=== PATIENT | female | born 1975 ===

== ENCOUNTER 2024-10-17 09:42 | Outpatient (AMB) | payer OTHER, SELFPAY ==
--- NOTE | 2024-10-17 09:49 | A.OFFPC_ITS ---
Vital Signs 10/17/24 09:50 Height 5 ft 2.5 in Weight 182 lb 12.8 oz BMI 32.9 BP 132/80 Blood Pressure Location Lt brachial Position Sitting Respiration 18 Pulse 95 Pulse Source Pulse Oximeter Temp 98.9 F Temp Source Oral Pulse Oximetry (%) 99 Oxygen Delivery Method Room Air Intake Visit Reasons: establish care Intake Note: Patient is a new patient here to establish care. Transferring care from [facility] in [place], [place]. Medical records have been requested and have not received. Clinical Field Specialist Required: No Accompanied by: Self / Same As Patient Allergies No Known Allergies Allergy (Unknown, Verified 10/17/24 10:24) NONE Medication List - Last Reconciled 10/17/24 by NELLY Cohen No Known Home Meds Tobacco use date assessed: 10/17/24 Dental Screening Dental Screen Date: 10/17/24 Did you have a dental visit in the last 12 months?: Yes Did you have a dental problem in the last 6 months where you did not have access to dental care?: No Was dental information given to patient?: Patient has dentist HPI establish care HPI Details Previous PCP: Does not remembers the DR. watt, at [facility] Last visit: 7 years Last PE: same Specialist: no OBGYN: [facility], does not knows the doctor's name, visit last year Mammogram: done 2-3 months ago Pap smear: every 3 years due partial hysterectomy, completed 2 years ago Past medical history: Heart Burn-she has been taking omeprazole 20 mg OTC Medications: omeprazole Family HX: already in chart HPI: The patient is a 48-year-old female presenting with gastroesophageal reflux disease (GERD) and routine health maintenance. Her GERD symptoms include daily heartburn intensified by coffee, with symptoms emerging around six months ago. Currently, she manages her symptoms with 20 mg of [id number]-mbr-dfrmmll omeprazole taken twice daily, which provides partial relief. She has a past medical history significant for a partial hysterectomy and breast reduction surgery. Notably, she underwent a colonoscopy 10 to 12 years ago for post-surgical abdominal pain, identified as due to endometriosis. The patient has no reported history of hypertension and denies high blood pressure. Her family history includes diabetes. She has no current prescriptions aside from omeprazole. She is due for colonoscopy, discussed with the patient that since her last colonoscopy was normal she could do the Cologuard. Patient refused, said that she would not be able to collect he own stool. Denies chest pain, SOB, heart palpitation No abdominal pain/change in bowel habits Denies urinary symptoms PFSH Medical History (Updated 10/17/24 @ 16:17 by NELLY Cohen) GERD (gastroesophageal reflux disease) Endometriosis Surgical History (Updated 10/17/24 @ 10:02 by Destiny Miller SCALE TANK OPERATOR) History of bilateral breast reduction surgery History of partial hysterectomy Family History (Updated 10/17/24 @ 10:06 by Destiny Miller CMA) Father Heart failure Kidney failure Hypertension Diabetes Dialysis patient Mother Diabetes Hypertension Son No problems noted. Daughter No problems noted. Son No problems noted. 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 1. Little interest or pleasure in doing things: not at all 2. Feeling down, depressed, or hopeless: not at all 3. Trouble falling or staying asleep, or sleeping too much: not at all 4. Feeling tired or having little energy: not at all 5. Poor appetite or overeating: not at all 6. Feeling bad about yourself - or that you are a failure or have let yourself or your family down: not at all 7. Trouble concentrating on things, such as reading the newspaper or watching television: not at all 8. Moving or speaking so slowly that other people could have noticed. Or the opposite - being so fidgety or restless that you have been moving around a lot more than usual: not at all 9. Thoughts that you would be better off or of hurting yourself in some way: not at all Total score: 0 Depression Screening Interpretation: Negative Depression Screening Done: Yes 33436 - PHQ-9 Billing: Yes Source: Developed by Drs. Philippe Worthy, Leonard Lang and colleagues, with an educational kevin from [employer]. Thrive Questionnaire Date Thrive assessed: 10/17/24 I am a: Patient What is your living situation today?: I have a steady place to live Within the past 12 months, did the food you bought not last and you didn't have the money to get more?: Never true Within the past 12 months, did you worry whether your food would run out before you got money to buy more?: Never true Do you have trouble paying for medicines?: No Do you have trouble getting transportation to medical appointments?: No Do you have trouble paying your heating and electricity bill?: No Do you have trouble taking care of your child, family member or friend?: No Do you have trouble with day-to-day activities such as bathing, preparing meals, shopping, managing finances, etc.?: No Are you currently unemployed and looking for a job?: No Are you interested in more education?: No Please select the resources that you would like help with: None Currently or been in a relationship where the following occur: No concerns reported THRIVE Score: 0 AUDIT C Alcohol Use Questionnaire (AUDIT-C) 1. How often do you have a drink containing alcohol?: Never Total Score: 0 Score Reviewed/Action Taken: No NOEL-7 AMB Questionnaire NOEL-7 Date NOEL - 7 assessed: 10/17/24 Feeling nervous, anxious, or on edge: 0 = Not at all Not being able to stop or control worryin = Not at all Worrying too much about different things: 0 = Not at all Trouble relaxin = Not at all Being so restless that it is hard to sit still: 0 = Not at all Becoming easily annoyed or irritable: 0 = Not at all Feeling afraid as if something awful might happen: 0 = Not at all Total NOEL-7 score (0-4 normal; 5-9 mild; 10-14 moderate; 15-21 severe): 0 Source: Developed by Drs. Philippe Worthy, Leonard Lang and colleagues, with an educational kevin from [employer]. NOEL-7 Assessment Billing NOEL-7 Assessment Tool: NOEL-7 Assessment 31113 Review of Systems Const Denies headache(s) Eyes Denies loss of vision ENT Denies vertigo, Denies dizziness, Denies headache(s) and Denies sore throat Card Denies chest pain, Denies leg edema and Denies lightheadedness Resp Denies cough, Denies hemoptysis and Denies wheezing GI Denies abdominal pain, Denies melena, Denies constipation, Reports heartburn, Denies diarrhea and Denies vomiting Denies urinary frequency, Denies dysuria and Denies urinary urgency Musc Denies arthralgias, Denies joint swelling, Denies numbness and Denies tingling Neuro Denies Abnormal speech present, Denies behavioral changes, Denies vertigo, Denies dizziness, Denies headache(s), Denies loss of vision, Denies memory loss, Denies numbness and Denies tingling Psych Denies anxiety, Denies behavioral changes, Denies depression, Denies memory loss and Denies panic attacks Cricket/Lymph Denies easy bleeding and Denies easy bruising Aller/Immun Denies wheezing Physical exam (Primary Care) Vital Signs: Last Vital Signs Temp 98.9 F 10/17/24 09:50 Pulse 95 10/17/24 09:50 Resp 18 10/17/24 09:50 BP 132/80 10/17/24 09:50 Pulse Ox 99 10/17/24 09:50 Oxygen Delivery Method Room Air 10/17/24 09:50 BMI result Body Mass Index 32.9 Tobacco/Smoking Status: Tobacco use Status Tobacco use date assessed 10/17/24 10/17/24 09:58 Patient Tobacco Use Status Former Tobacco user 10/17/24 10:19 Tobacco use type Cigarette 10/17/24 10:19 e-Cigarette/Vaping Use Never Used 10/17/24 10:19 PHQ-9: PHQ-9 Score PHQ-9: Total score 0 10/17/24 10:31 Depression Screening Interpretation: Negative Thrive Assessment: Date of Thrive Assessment Date Thrive assessed 10/17/24 10/17/24 09:58 Currently or been in a relationship where the following occur: No concerns reported Const General: healthy appearing, no acute distress, alert and awake Nutritional Appearance: well nourished Orientation/consciousness: oriented to person, oriented to place and oriented to time HENMT Ears: TM's normal bilaterally General nose exam: Normal nasal mucous membranes and turbinates present Eyes Conjunctivae: conjunctivae normal Sclerae: sclerae normal Pupils: Equal, round and reactive pupils present Neck Neck: Yes no lymphadenopathy and Yes no JVD Thyroid: Thyroid normal Carotids: no bruits Resp Effort & Inspection: normal respiratory effort and not tachypneic Auscultation: no crackles, no rales, no rhonchi and no wheezes Cardio Rate: regular rate Rhythm: regular rhythm Heart sounds: no murmurs and normal S1 and S2 GI Palpation (GI): Soft to palpation, nontender, no hepatomegaly and no splenomegaly Auscultation: normal bowel sounds Skin General skin exam: no rashes or lesions noted and dry skin Neuro General: oriented to person, oriented to place and oriented to time Cranial nerves: Yes Equal, round and reactive pupils present Speech: No Abnormal speech present Gait exam (Neuro): Normal gait present Motor exam (neuro): no tremor noted Extrem Right upper extremity: full ROM Left upper extremity: full ROM Right lower extremity: full ROM; no edema Left lower extremity: full ROM; no edema Psych Mental Status: mental status grossly normal Speech and movement: Normal speech and movement present Affect: normal affect Attitude: cooperative Thought process: Normal thought process present Coding Level of Care Code New Pt Level 3 (74952) Diagnoses Gastroesophageal reflux disease, unspecified whether esophagitis present K21.9 Esophagitis presence: esophagitis presence not specified Additional Codes NOEL-7 Assessment Billing - NOEL-7 Assessment Tool: NOEL-7 Assessment 30369 ([id number]) PHQ-9 - 11345 - PHQ-9 Billing: Yes ([id number]) Time Spent (min) 34 Assessment & Plan Assessment & Plan (1) GERD (gastroesophageal reflux disease): Code(s): K21.9 - Gastro-esophageal reflux disease without esophagitis Category: Medical Qualifiers: Esophagitis presence: esophagitis presence not specified Qualified Code(s): K21.9 - Gastro-esophageal reflux disease without esophagitis Plan The patient?s management for gastroesophageal reflux disease involves starting on 40 mg of omeprazole each morning and dietary modifications to mitigate triggers. I informed the patient about the importance of taking medication before meals and reviewing dietary triggers like coffee, chocolate, and acidic foods. Given the chronicity and potential complications, referral to gastroenterology for further esophageal evaluation is recommended if symptoms persist. We will monitor GERD symptoms and assess medication effectiveness, advising follow-up in six weeks to evaluate progress with current treatment. The patient is due for a routine colonoscopy due to the significant interval since her last screening. Preventive measures will include scheduled lab tests for comprehensive health evaluation considering her family history of diabetes. Patient was informed and verbally consented to the use of an ambient scribe for clinic note documentation during this visit. Orders: Orders Complete Blood Count Auto Diff Today Z00.00 - Encounter for general adult medical examination without abnormal findings Comprehensive [place]. Panel Fast Today Z00.00 - Encounter for general adult me dical examination without abnormal findings Lipid Panel Today Z00.00 - Encounter for general adult medical examination without abnormal findings UA CC w/rflx Micro + Cult Today Z00.00 - Encounter for general adult medical examination without abnormal findings TSH reflex Free T4 Today Z00.00 - Encounter for general adult medical examination without abnormal findings Vitamin D 25-OH Total Today Z00.00 - Encounter for general adult medical examination without abnormal findings Referrals Gastroenterology Referral K21.9 - Gastro-esophageal reflux disease without esophagitis, Z12.11 - Encounter for screening for malignant neoplasm of colon, Z12.12 - Encounter for screening for malignant neoplasm of rectum Medications: New omeprazole 40 mg PO DAILY 90 caps 2RF Patient Instructions: - Take omeprazole 40 mg in the morning, 30 minutes before meals. - Avoid triggers like strong coffee, chocolate, and acidic foods. - Schedule a routine colonoscopy. - Follow up for lab work and wellness check. - Monitor GERD symptoms, and seek care if they worsen. - Return for follow-up in six weeks.
[2024-10-17 09:50] VITALS: BP 132/80; PULSE 95; RESP 18; TEMP 37.2; O2SAT 99; BMI 32.9
--- OUTSIDE RECORDS SUMMARY | 2024-10-17 10:18 | XMS_ITS | Clinical Summary ---
Author Organization [facility] ity Address [address] [place] [address] Care Team Providers Care Wage Analyst Name Role Phone Unavailable Primary Care Provider Unavailabl e Social History Tobacco Use Types Packs/Day Years Used Date Smoking Tobacco: Never Assessed Comments Unknown Sex and Gender Information Value Date Recorded Sex Assigned at Not on file Legal Sex Female 4:47 AM EST Gender Identity Not on file Sexual Orientation Not on file Plan of Treatment Health Maintenance Due Date Last Done Comments Breast Cancer Screening 1977 DTaP,Tdap,and Td Vaccines (1 - Tdap) 1996 Hepatitis B Vaccines (1 of 3 - 19+ 3-dose series) 1996 Cervical Cancer Screening: P ap Smear 1998 COVID-19 Vaccine (2023-2 5 season) 2024 Influenza Vaccine (Season Ended) 2025 HIB Vaccines Aged Out No longer eligi ble based on patient's age to complete this topic HPV Vaccines Aged Out No longer eligi ble based on patient's age to complete this topic Hepatitis A Vaccines Aged Out No long er eligible based on patient's age to complete this topic IPV Vaccines Aged Out No longer eligi ble based on patient's age to complete this topic MMR Vaccines Aged Out No longer eligi ble based on patient's age to complete this topic Meningococcal ACWY Vaccine Aged Out N o longer eligible based on patient's age to complete this topic Meningococcal B Vaccine Aged Out No l onger eligible based on patient's age to complete this topic Pneumococcal Vaccine: Pediat rics (0 to 5 Years) and At-Risk Patients (6 to 64 Years) Aged Out No longer eligible b ased on patient's age to complete this topic RSV Immunization Patients Un jose 20 months Aged Out No longer eligible b ased on patient's age to complete this topic Varicella Vaccines Aged Out No longer eligible based on patient's age to complete this topic
== END 2024-10-17 10:44 | disposition home or self-care (01) ==
LOC: HO.HMCH 09:43
DX: K21.9 Gastro-esophageal reflux disease without esophagitis (principal)

== ENCOUNTER → 2024-10-17 09:42 | Outpatient (BNVA) | payer OTHER, SELFPAY | DX: K21.9 Gastro-esophageal reflux disease without esophagitis (principal); I10 Essential (primary) hypertension; Z79.899 Other long term (current) drug therapy | CPT/HCPCS: 96127; 99202 ==

== ENCOUNTER 2024-10-25 07:40 | Outpatient (REF) | payer OTHER, SELFPAY ==
[2024-10-25 08:11] LABS: MANUAL DIFF FLAG NO
[2024-10-25 08:33] LABS: Basophils Absolute Auto 0.1 X10*3/uL (0.0-0.2); Basophils Percent Auto 0.6 % (0-2); Eosinophils Absolute Auto 0.2 X10*3/uL (0.0-0.4); Eosinophils Percent Auto 2.4 % (0-4); Hematocrit 37.5 % (37.0-47.0); Hemoglobin 12.7 g/dl (12.0-16.0); Imm Gran Abs Auto 0.04 X10*3/uL (0.00-0.03); Imm Gran Pct Auto 0.5 % (0.0-0.4); Lymphocytes Absolute Auto 2.8 X10*3/uL (1.2-4.9); Lymphocytes Percent Auto 31.3 % (20-40); Mean Corpuscular HGB Conc 33.9 g/dl (31.0-35.0); Mean Corpuscular Hemoglobin 29.3 pg (27.0-33.0); Mean Corpuscular Volume 86.4 fL (80.0-98.0); Mean Platelet Volume 9.9 fL (9.4-12.3); Monocytes Absolute Auto 0.7 X10*3/uL (0.1-1.2); Monocytes Percent Auto 8.1 % (2-11); Neutrophils Percent Auto 57.1 % (45-73); Platelet Count 319 X10*3/uL (160-400); Red Blood Count 4.34 X10*6/uL (4.20-5.50); Red Cell Distribution Width 13.4 % (11.0-16.0); White Blood Count 8.8 X10*3/uL (4.8-10.8)
[2024-10-25 09:20] LABS: Alanine Aminotransferase 30 U/L (0-31); Albumin Level 4.1 g/dL (3.5-5.0); Alkaline Phosphatase 74 U/L (39-117); Anion Gap 11 (12-20); Aspartate Amino Transferase 21 U/L (5-31); Bilirubin Total 0.8 mg/dL (0.0-1.0); Blood Urea Nitrogen 18 mg/dL (9-16); Calcium 9.8 mg/dL (8.4-10.2); Carbon Dioxide 29 mmol/L (22-29); Chloride 108 mmol/L (96-108); Cholesterol 251 mg/dL (<200); Estimated Glomerular Filt Rate > 60; Glucose Fasting 129 mg/dL (60-99); HDL Cholesterol 58 mg/dL (>40); LDL Cholesterol Calculated 168 mg/dL (<100); Potassium 4.2 mmol/L (3.3-5.1); Sodium 144 mmol/L (135-145); Triglycerides 127 mg/dL (<150)
[2024-10-25 09:41] LABS: Appearance Urine Clear; Color Urine Yellow; Glucose Urine UA Negative (Negative); Leukocyte Esterase Urine Negative (Negative); Nitrite Urine Negative (Negative); PH 5.5 (5.0-9.0); Specific Gravity - Urine 1.025 (1.005-1.025); Urine Blood Negative (Negative); Urine Ketones Negative (Negative); Urine Protein Negative (Neg-Trace)
[2024-10-25 09:41] LABS: TSH reflex Free T4 0.78 uIU/mL (0.32-4.0); Vitamin D 25-OH Total 25.6 ng/mL (>30)
== END 2024-10-25 07:41 | disposition home or self-care (01) ==
LOC: HO.LAB 07:40
DX: Z00.00 Encounter for general adult medical examination without abnormal findings (principal)
CPT/HCPCS: 36415; 80053; 80061; 81003; 82306; 84443; 85025

== ENCOUNTER 2024-12-25 10:18 | Outpatient (AMB) | payer OTHER, SELFPAY ==
[2024-12-25 10:20] VITALS: BP 150/90; PULSE 81; RESP 18; O2SAT 97; BMI 32.8
--- NOTE | 2024-12-25 10:20 | A.OFFPC_ITS ---
Vital Signs 12/25/24 10:20 12/25/24 11:11 Height 5 ft 2.5 in Weight 182 lb BMI 32.8 BP 150/90 H 154/96 H Blood Pressure Location Lt brachial Rt brachial Position Sitting Respiration 18 Pulse 81 Pulse Source Pulse Oximeter Pulse Oximetry (%) 97 Oxygen Delivery Method Room Air Intake Visit Reasons: pe Machine Set Up Operator Required: No Accompanied by: Self / Same As Patient Allergies No Known Allergies Allergy (Unknown, Verified 12/25/24 10:52) NONE Medication List - Last Reconciled 12/25/24 by NELLY Cohen omeprazole 40 mg PO DAILY Tobacco use date assessed: 12/25/24 Dental Screening Dental Screen Date: 12/25/24 Did you have a dental visit in the last 12 months?: Yes Did you have a dental problem in the last 6 months where you did not have access to dental care?: No Was dental information given to patient?: Patient has dentist HPI pe HPI Details Dentist: up to date Eye: up to date Snellen: Right: Left: Corrected vision: yes, glasses STI screening: Colonoscopy: 10 to 12 years ago-will refer back to gi Pap Smer: PHQ-9: Flu: COVID: x3 Tdap: due-decline. Diet: regular, she has been eating health since last Exercise: She is walking 45 min3 times a week and the other 2 days, she is doing her bike at home for 45 mins [facility] Medical History GERD (gastroesophageal reflux disease) Endometriosis Surgical History History of bilateral breast reduction surgery History of partial hysterectomy Family History Father Heart failure Kidney failure Hypertension Diabetes Dialysis patient Mother Diabetes Hypertension Son No problems noted. Daughter No problems noted. Son No problems noted. 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 1. Little interest or pleasure in doing things: not at all 2. Feeling down, depressed, or hopeless: not at all 3. Trouble falling or staying asleep, or sleeping too much: not at all 4. Feeling tired or having little energy: not at all 5. Poor appetite or overeating: not at all 6. Feeling bad about yourself - or that you are a failure or have let yourself or your family down: not at all 7. Trouble concentrating on things, such as reading the newspaper or watching television: not at all 8. Moving or speaking so slowly that other people could have noticed. Or the opposite - being so fidgety or restless that you have been moving around a lot more than usual: not at all 9. Thoughts that you would be better off or of hurting yourself in some way: not at all Total score: 0 Depression Screening Interpretation: Negative Depression Screening Done: Yes 32128 - PHQ-9 Billing: Yes Source: Developed by Drs. Philippe Worthy, Martita Estrada, Leonard Valdez and colleagues, with an educational kevin from [employer]. Thrive Questionnaire Date Thrive assessed: 12/25/24 I am a: Patient What is your living situation today?: I have a steady place to live Within the past 12 months, did the food you bought not last and you didn't have the money to get more?: I choose not to answer this question Within the past 12 months, did you worry whether your food would run out before you got money to buy more?: I choose not to answer this question Do you have trouble paying for medicines?: I choose not to answer this question Do you have trouble getting transportation to medical appointments?: I choose not to answer this question Do you have trouble paying your heating and electricity bill?: I choose not to answer this question Do you have trouble taking care of your child, family member or friend?: I choose not to answer this question Do you have trouble with day-to-day activities such as bathing, preparing meals, shopping, managing finances, etc.?: I choose not to answer this question Are you currently unemployed and looking for a job?: I choose not to answer this question Are you interested in more education?: I choose not to answer this question THRIVE Score: 0 AUDIT C Alcohol Use Questionnaire (AUDIT-C) 1. How often do you have a drink containing alcohol?: Never Total Score: 0 Score Reviewed/Action Taken: No NOEL-7 AMB Questionnaire NOEL-7 Date NOEL - 7 assessed: 12/25/24 Feeling nervous, anxious, or on edge: 0 = Not at all Not being able to stop or control worryin = Not at all Worrying too much about different things: 0 = Not at all Trouble relaxin = Not at all Being so restless that it is hard to sit still: 0 = Not at all Becoming easily annoyed or irritable: 0 = Not at all Feeling afraid as if something awful might happen: 0 = Not at all Total NOEL-7 score (0-4 normal; 5-9 mild; 10-14 moderate; 15-21 severe): 0 Source: Developed by Drs. Philippe Worthy, Martita Estrada, Leonard Valdez and colleagues, with an educational kevin from [employer]. NOEL-7 Assessment Billing NOEL-7 Assessment Tool: NOEL-7 Assessment 11092 Physical exam (Primary Care) Vital Signs: Last Vital Signs Pulse 81 12/25/24 10:20 Resp 18 12/25/24 10:20 BP 154/96 H 12/25/24 11:11 Pulse Ox 97 12/25/24 10:20 Oxygen Delivery Method Room Air 12/25/24 10:20 BMI result Body Mass Index 32.8 Tobacco/Smoking Status: Tobacco use Status Tobacco use date assessed 12/25/24 12/25/24 10:25 Patient Tobacco Use Status Former Tobacco user 12/25/24 10:25 Tobacco use type Cigarette 12/25/24 10:25 e-Cigarette/Vaping Use Never Used 12/25/24 10:25 PHQ-9: PHQ-9 Score PHQ-9: Total score 0 12/25/24 10:55 Depression Screening Interpretation: Negative Thrive Assessment: Date of Thrive Assessment Date Thrive assessed 10/17/24 12/25/24 10:28 Results AMB Hemoglobin A1c AMB Hemoglobin A1c 5.8 % Last Edit by Adelia Westbrook MA on 12/25/24 11:17 Coding Additional Codes NOEL-7 Assessment Billing - NOEL-7 Assessment Tool: NOEL-7 Assessment 27929 ([id number]) PHQ-9 - 06082 - PHQ-9 Billing: Yes ([id number]) Assessment & Plan Assessment & Plan Orders: Orders AMB Hemoglobin A1c Today Z13.9 - Encounter for screening, unspecified Medications: New lisinopril 5 mg PO DAILY 30 tabs 3RF
--- OUTSIDE RECORDS SUMMARY | 2024-12-25 11:04 | XMS_ITS | Clinical Summary ---
Author Organization [facility] ity Address [address] [place] [address] Care Team Providers Care Import Customer Service Manager Name Role Phone Unavailable Primary Care Provider [...] 1998 COVID-19 Vaccine (2023-2 5 season) 2024 Depression Screening 05/14/2024 Influenza Vaccine (#1) 2025 HIB Vaccines Aged Out No longer [...] 5 Years) and At-Risk Patients (6 to 49 Years) Aged Out No longer eligible b ased on patient's age to complete this topic RSV Immunization Patients Un jose 20 months Aged Out No longer eligible b ased on patient's age to complete this topic Varicella Vaccines Aged Out No longer eligible based on patient's age to complete this topic
[2024-12-25 11:11] VITALS: BP 154/96
== END 2024-12-25 11:34 | disposition home or self-care (01) ==
DX: Z13.9 Encounter for screening, unspecified (principal)

== ENCOUNTER → 2024-12-25 10:18 | Outpatient (BNVA) | payer OTHER, SELFPAY | DX: Z00.00 Encounter for general adult medical examination without abnormal findings (principal); R73.03 Prediabetes; E78.5 Hyperlipidemia, unspecified; R03.0 Elevated blood-pressure reading, without diagnosis of hypertension; K21.9 Gastro-esophageal reflux disease without esophagitis; E55.9 Vitamin D deficiency, unspecified; I10 Essential (primary) hypertension; E66.811 Obesity, class 1; Z68.32 Body mass index [BMI] 32.0-32.9, adult | CPT/HCPCS: 83036; 99396 ==

== ENCOUNTER 2025-01-27 09:18 | Outpatient (REF) | payer OTHER, SELFPAY ==
--- OUTSIDE RECORDS SUMMARY | 2025-01-27 11:46 | XMS_ITS | Clinical Summary ---
Author Organization [facility] ity Address [address] [place] [address] Care Team Providers Care Corner Former Name Role Phone Unavailable Primary Care Provider [...] Cervical Cancer Screening: P ap Smear 1998 Depression Screening 05/14/2024 COVID-19 Vaccine ( - 2023-2 5 season) 2025 Influenza Vaccine (#1) 2025 HIB Vaccines Aged [...]
== END 2025-01-27 09:19 | disposition home or self-care (01) ==
LOC: HO.LAB 09:18
DX: Z11.1 Encounter for screening for respiratory tuberculosis (principal)
CPT/HCPCS: 36415; 86481

== ENCOUNTER 2025-02-03 10:55 | Outpatient (REF) | payer OTHER, SELFPAY ==
--- OUTSIDE RECORDS SUMMARY | 2025-02-03 13:38 | XMS_ITS | Clinical Summary ---
Author Organization [facility] ity Address [address] [place] [address] Care Team Providers Care Quantitative Analyst Name Role Phone Unavailable Primary Care [...]
== END 2025-02-03 10:56 | disposition home or self-care (01) ==
LOC: HO.LAB 10:55
DX: Z13.89 Encounter for screening for other disorder (principal)
CPT/HCPCS: 36415; 86481

== ENCOUNTER → 2025-02-12 11:43 | Outpatient (BNVA) | payer OTHER, SELFPAY | DX: I10 Essential (primary) hypertension (principal) | CPT/HCPCS: 99211 ==

== ENCOUNTER 2025-02-13 13:12 | Outpatient (AMB) | payer OTHER, SELFPAY ==
--- NOTE | 2025-02-13 13:21 | MHC.PC.OV ---
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 Daughter No problems noted. Son No problems noted. 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 Cognitive needs: No Hearing needs: No Vision needs: Yes (Glasses) Questionnaire Thrive Questionnaire Date Thrive assessed: 10/17/24 I am a: Patient What is your living situation today?: I have a steady place to live Within the past 12 months, did the food you bought not last and you didn't have the money to get more?: I choose not to answer this question Within the past 12 months, did you worry whether your food would run out before you got money to buy more?: I choose not to answer this question Do you have trouble paying for medicines?: I choose not to answer this question Do you have trouble getting transportation to medical appointments?: I choose not to answer this question Do you have trouble paying your heating and electricity bill?: I choose not to answer this question Do you have trouble taking care of your child, family member or friend?: I choose not to answer this question Do you have trouble with day-to-day activities such as bathing, preparing meals, shopping, managing finances, etc.?: I choose not to answer this question Are you currently unemployed and looking for a job?: I choose not to answer this question Are you interested in more education?: I choose not to answer this question Please select the resources that you would like help with: None Currently or been in a relationship where the following occur: I choose not to answer THRIVE Score: 0 NOEL-7 AMB Questionnaire NOEL-7 Date NOEL - 7 assessed: 12/25/24 Source: Developed by Drs. Philippe Worthy, Martita Estrada, Leonard Valdez and colleagues, with an educational kevin from [employer]. Physical exam (Primary Care) Tobacco/Smoking Status: Tobacco use Status Tobacco use date assessed 12/25/24 02/13/25 13:22 Patient Tobacco Use Status Former Tobacco user 02/13/25 13:22 Tobacco use type Cigarette 02/13/25 13:22 e-Cigarette/Vaping Use Never Used 02/13/25 13:22 Thrive Assessment: Date of Thrive Assessment Date Thrive assessed 10/17/24 02/13/25 13:22 Currently or been in a relationship where the following occur: I choose not to answer Office Meds tuberculin PPD 5 tub. unit/0.1 mL intradermal injection solution Performing Provider: NELLY Cohen [facility] Administered by: Carito Kan LPN on 02/13/25 13:25 Dose Route Admin Location Dispensed Lot Number Expiration Date 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
[2025-02-13 13:26] VITALS: RESP 18
--- OUTSIDE RECORDS SUMMARY | 2025-02-13 13:33 | XMS_ITS | Clinical Summary ---
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
== END 2025-02-13 13:27 | disposition home or self-care (01) ==
LOC: HO.HMCH 13:13
DX: Z11.1 Encounter for screening for respiratory tuberculosis (principal)

== ENCOUNTER → 2025-02-13 13:12 | Outpatient (BNVA) | payer OTHER, SELFPAY | DX: Z11.1 Encounter for screening for respiratory tuberculosis (principal) | CPT/HCPCS: 86580 ==

== ENCOUNTER 2025-03-30 09:32 | Outpatient (AMB) | payer OTHER, SELFPAY ==
[2025-03-30 09:43] VITALS: BP 146/80; PULSE 100; RESP 18; TEMP 36.2; O2SAT 99; BMI 33.1
--- NOTE | 2025-03-30 09:43 | A.OFFPC_ITS ---
Vital Signs 03/30/25 09:43 03/30/25 09:55 Height 5 ft 2.5 in Weight 184 lb BMI 33.1 BP 146/80 H 136/82 Blood Pressure Location Lt brachial Lt brachial Position Sitting Respiration 18 Pulse 100 Pulse Source Pulse Oximeter Temp 97.1 F Temp Source Temporal Artery Scan Pulse Oximetry (%) 99 Oxygen Delivery Method Room Air Intake Visit Reasons: high blood pressure/hld/vitamin d 3 month f/u Employment Representative Required: No Accompanied by: Self / Same As Patient Allergies No Known Allergies Allergy (Unknown, Verified 03/30/25 09:44) NONE Medication List - Last Reconciled 03/30/25 by NELLY Cohen cholecalciferol (vitamin D3) 25 mcg PO DAILY lisinopril 20 mg (2 x 10 mg) PO DAILY 30 days omeprazole 40 mg PO DAILY Tobacco use date assessed: 03/30/25 Dental Screening Dental Screen Date: 03/30/25 Did you have a dental visit in the last 12 months?: No Did you have a dental problem in the last 6 months where you did not have access to dental care?: No Was dental information given to patient?: Patient has dentist HPI high blood pressure/hld/vitamin d 3 month f/u HPI Details The patient is a 49-year-old female presenting for hypertension follow up She was initially started on 5 mg daily in office for elevated blood pressure Rechecked blood pressure continues to be elevated and her medication was titrated up The patient is currently on lisinopril 20 mg daily Initial blood pressure was 146/80, rechecked few minutes after 136/82 The patient continues to work on decreasing her salt intake Denies any chest pain shortness of breath, dizziness or heart palpitation Denies any swelling in the legs or leg pain The patient was also concerned about her blood sugar level. The patient he wants on her previous visit was 5.8% and she was encouraged to decrease her sugar/carbohydrate intake. Explained to the patient her blood sugars not at a concerning range but she just needs to be mindful to prevent this further increasing into the diabetic range. HPI Comments History of Present Illness Details History of Present Illness Health Maintenance - It was advised to attempt natural life style modifications to manage blood sugar before considering additional medication. - Recommended follow-up in three months to re-evaluate blood pressure. Social History - Lifestyle: The patient was encouraged to pursue natural lifestyle changes to manage her health conditions before initiating more medications. Results [facility] Medical History GERD (gastroesophageal reflux disease) Endometriosis Surgical History History of bilateral breast reduction surgery History of partial hysterectomy Family History Father Heart failure Kidney failure Hypertension Diabetes Dialysis patient Mother Diabetes Hypertension Son No problems noted. Daughter No problems noted. Son No problems noted. 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 Cognitive needs: No Hearing needs: No Vision needs: Yes (Glasses) Questionnaire Thrive Questionnaire Date Thrive assessed: 10/17/24 I am a: Patient What is your living situation today?: I have a steady place to live Within the past 12 months, did the food you bought not last and you didn't have the money to get more?: I choose not to answer this question Within the past 12 months, did you worry whether your food would run out before you got money to buy more?: I choose not to answer this question Do you have trouble paying for medicines?: I choose not to answer this question Do you have trouble getting transportation to medical appointments?: I choose not to answer this question Do you have trouble paying your heating and electricity bill?: I choose not to answer this question Do you have trouble taking care of your child, family member or friend?: I choose not to answer this question Do you have trouble with day-to-day activities such as bathing, preparing meals, shopping, managing finances, etc.?: I choose not to answer this question Are you currently unemployed and looking for a job?: I choose not to answer this question Are you interested in more education?: I choose not to answer this question Please select the resources that you would like help with: None Currently or been in a relationship where the following occur: I choose not to answer THRIVE Score: 0 NOEL-7 AMB Questionnaire NOEL-7 Date NOEL - 7 assessed: 12/25/24 Source: Developed by Drs. Philippe Worthy, Martita Estrada, Leonard Valdez and colleagues, with an educational kevin from [employer]. Review of Systems Narrative Review of Systems - Cardiovascular: Denies chest pain. - Extremities: Denies leg swelling. Const Denies anorexia and Denies headache(s) Eyes Reports no additional complaints ENT Denies dysphagia, Denies dizziness, Denies headache(s) and Denies odynophagia Card Denies chest pain, Denies syncope, Denies edema, Denies irregular heart rhythm, Denies lightheadedness and Denies dyspnea Resp Denies cough and Denies dyspnea GI Denies abdominal pain, Denies constipation, Denies dysphagia, Denies diarrhea, Denies nausea, Denies odynophagia and Denies vomiting Reports no additional complaints Musc Reports no additional complaints and Denies abnormal gait Skin/Breast Reports system reviewed and no additional complaints, except as documented Neuro Denies abnormal gait, Denies dizziness, Denies syncope and Denies headache(s) Psych Reports no additional complaints Physical exam (Primary Care) Vital Signs: Last Vital Signs Temp 97.1 F 03/30/25 09:43 Pulse 100 03/30/25 09:43 Resp 18 03/30/25 09:43 BP 136/82 03/30/25 09:55 Pulse Ox 99 03/30/25 09:43 Oxygen Delivery Method Room Air 03/30/25 09:43 BMI result Body Mass Index 33.1 Tobacco/Smoking Status: Tobacco use Status Tobacco use date assessed 03/30/25 03/30/25 09:49 Patient Tobacco Use Status Former Tobacco user 03/30/25 09:49 Tobacco use type Cigarette 03/30/25 09:49 e-Cigarette/Vaping Use Never Used 03/30/25 09:49 Thrive Assessment: Date of Thrive Assessment Date Thrive assessed 10/17/24 03/30/25 09:49 Currently or been in a relationship where the following occur: I choose not to answer Narrative Physical Exam - Vitals: Blood pressure was noted to be elevated, with a systolic reading of 136. Const General: cooperative, healthy appearing, comfortable and no acute distress Orientation/consciousness: patient oriented x3 HENMT Head: Yes normocephalic Ears: hearing grossly normal bilaterally General nose exam: Normal external nose present Eyes General: appearance normal, both eyes and all related structures Conjunctivae: conjunctivae normal Neck Neck: Yes full ROM and Yes no lymphadenopathy Resp Effort & Inspection: normal respiratory effort Auscultation: clear to auscultation bilaterally, no crackles, no rales, no rhonchi and no wheezes Cardio Rate: regular rate Rhythm: regular rhythm Skin General skin exam: no rashes or lesions noted Neuro General: patient oriented x3 Gait exam (Neuro): Normal gait present Extrem General: Yes normal to inspection, Yes full ROM and No edema Psych Affect: normal affect Attitude: cooperative Insight: Good insight present (Psych) Judgement: Good judgement present (Psych) Coding Level of Care Code Est Pt Level 3 (26349) Diagnoses Hypertension, unspecified type I10 Hypertension type: unspecified Prediabetes R73.03 Time Spent (min) 28 Assessment & Plan Assessment & Plan (1) High blood pressure: Code(s): I10 - Essential (primary) hypertension Category: Medical Qualifiers: Hypertension type: unspecified Qualified Code(s): I10 - Essential (primary) hypertension (2) Prediabetes: Code(s): R73.03 - Prediabetes Category: Medical Plan Plan Patient was informed and verbally consented to the use of an ambient scribe for clinic note documentation during this visit. 1. Hypertension The patient's blood pressure is elevated, with a recent systolic reading of 136 noted, though it appears to be trending downward. The plan is to recheck her blood pressure later in the visit after she walks and to have her return for a follow-up visit in three months for another blood pressure check. Reinforced low-salt diet. 2. Prediabetes Patient was concerned about her blood sugar today. The patient's blood sugar levels are borderline, putting her in a prediabetic state. The plan is to encourage lifestyle modifications to manage blood sugar naturally before considering additional medications. Discussion Notes I discussed the patient's elevated blood pressure, noting that it is trending down, but that I would like to see it improve further. I explained that we would recheck her blood pressure during this visit after she walks a bit and then see her back in three months for a follow-up. I also addressed her blood sugar levels, explaining that they are in the prediabetic range and that it is important to address this before it becomes uncontrolled. I recommended she focus on making natural lifestyle changes to manage this before we consider adding more medications.
[2025-03-30 09:55] VITALS: BP 136/82
== END 2025-03-30 11:32 | disposition home or self-care (01) ==
LOC: HO.HMCH 09:33
DX: I10 Essential (primary) hypertension (principal); R73.03 Prediabetes

== ENCOUNTER → 2025-03-30 09:32 | Outpatient (BNVA) | payer OTHER, SELFPAY | DX: I10 Essential (primary) hypertension (principal); R73.03 Prediabetes | CPT/HCPCS: 99212 ==